=== PATIENT | male | born 1950 | race Caucasian/White ===

== ENCOUNTER 2018-07-17 06:42 | Emergency (ER) | payer MEDICARE ==
[~2018-07-17] VITALS: Ht 175.3 cm; Wt 79.4 kg
[2018-07-17 06:43] VITALS: BP 151/92
--- NOTE | 2018-07-17 07:40 | NUR ---
PT IS WHEELED TO RADIOLOGY VIA WHEELCHAIR.
--- NOTE | 2018-07-17 08:20 | NUR ---
Patient discharged to home in stable condition. Written and verbal after care instructions given. Patient verbalizes understanding of instruction.
== END 2018-07-17 08:59 | disposition home or self-care (01) ==
LOC: ER 06:44
DX: S13.8XXA Sprain of joints and ligaments of other parts of neck, initial encounter (principal); S80.02XA Contusion of left knee, initial encounter; S80.01XA Contusion of right knee, initial encounter; V49.49XA Driver injured in collision with other motor vehicles in traffic accident, initial encounter; Y93.89 Activity, other specified; Y92.410 Unspecified street and highway as the place of occurrence of the external cause; Y99.8 Other external cause status
CPT/HCPCS: 72040-TC; 73562